=== PATIENT | male | born 1990 | race Caucasian/White ===

== ENCOUNTER 2019-09-10 00:01 | Inpatient (IN) | payer MEDICARE, MEDICAID ==
[~2019-09-10] VITALS: Ht 172.7 cm; Wt 69.9 kg
[2019-09-10] VITALS (9 sets, daily range): BP systolic 83–112; BP diastolic 44–68
[2019-09-10 01:17] LABS: URINE BILIRUBIN NEGATIVE (Negative); URINE BLOOD NEGATIVE (Negative); URINE CLARITY CLEAR; URINE COLOR YELLOW; URINE GLUCOSE-RANDOM NEGATIVE (Negative); URINE KETONES NEGATIVE (Negative); URINE LEUKOCYTES-REFLEX NEGATIVE (Negative); URINE NITRITE-REFLEX NEGATIVE (Negative); URINE PROTEIN NEGATIVE (Negative); URINE SPECIFIC GRAVITY 1.025 (1.005-1.030)
[2019-09-10 01:29] LABS: ABSOLUTE LYMPHOCYTES 2.1 thou/uL (0.8-5.3); ABSOLUTE MONOCYTES 0.9 thou/uL (0.0-1.2); ABSOLUTE NEUTROPHILS 12.9 thou/uL (1.6-8.1); BASOPHILS 0.1 %; EOSINOPHILS 0.3 %; HEMATOCRIT 45.1 % (42.0-52.0); HEMOGLOBIN 15.6 gm/dL (14.0-18.0); LYMPHOCYTES 13.1 %; MCH 29.3 pg (26.0-34.0); MCHC 34.7 g/dL (28.0-37.0); MCV 84.4 fL (80.0-100.0); MONOCYTES 5.7 %; MPV 7.9 fl. (7.2-11.1); NUCLEATED RBCS 0 /100WBC; PLATELET COUNT* 291 thou/uL (150-400); POLYS 80.8 %; RBC 5.34 mil/uL (4.50-6.00); RDW-CV 13.5 % (10.5-14.5)
[2019-09-10 01:35] LABS: AMP/METHAMP Negative (Negative); BARBITURATES Negative (Negative); BENZODIAZEPINES Negative (Negative); COCAINE Negative (Negative); METHADONE Negative (Negative); OPIATES Negative (Negative); PCP Negative (Negative); THC Negative (Negative)
[2019-09-10 01:35] LABS: CALCIUM 8.1 mg/dL (8.5-10.1); CREATININE 1.1 mg/dL (0.6-1.3); POTASSIUM 3.8 mmol/L (3.5-5.1)
[2019-09-10 01:45] LABS: ALBUMIN 3.6 g/dL (3.4-5.0); MAGNESIUM 2.2 mg/dL (1.8-2.4); TOTAL BILIRUBIN 0.4 mg/dL (<0.1-1.0); TOTAL PROTEIN 7.6 g/dL (6.4-8.2)
--- NOTE | 2019-09-10 07:03 | NUR ---
REPORT RECIEVED FROM ER. PT OREINTED TO ROOM, CALL LIGHT SHOWN, FALL AGREEMENT WENT OVER, PT STATED UNDERSTANDING. ADMISSION DOCUMENTED. IV PATENT, FLUIDS AND CARDIZEM INFUSING. CARDIZEM RUNNING AT 10ML/HR, PT TOLERATING WELL. CONSULT CALLED. WILL CONTINUE WITH PLAN OF CARE.
--- NOTE | 2019-09-10 07:10 | NUR ---
CHANGE OF SHIFT, BEDSIDE REPORT GIVEN PATIENT SEEN AT BESIDE, IN BED WATCHING TV ASSUMED PATIENT CARE
--- NOTE | 2019-09-10 11:09 | EKG ---
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[place] : 1990 Requested By: Zehra Guo Order Number: [id number] MD: Werner Johnston Measurements Intervals [place] Rate: 136 P: [place]: QRS: 52 QRSD: 90 T: 42 QT: 303 QTc: 456 Interpretive Statements Atrial fibrillation RSR' in V1 or V2, right VCD No previous ECG available for comparison Electronically Signed On 09-10-2019 11:07:47 CDT by Werner Johnston [email or web address] <ELECTRONICALLY SIGNED> By: Werner Johnston MD, [facility] 09/10/19 1107 0002 0002 Werner Johnston MD, [facility] /EPI
--- NOTE | 2019-09-10 11:12 | CON ---
[address] [address] CONSULTATION Name: YULI BUCKNER Room: [address] IN M.R.#: [id number] Admission: 09/10/19 Attend Phys: Brooks Matta MD Discharge: Date of : 86 Report #: [id number] THIS REPORT FOR: //name// cc: NURIS Lewis family physician/PCP NURIS - No family physician/PCP ~ THIS REPORT FOR: //name// CC: Brooks Matta MD [facility] physician/PCP HISTORY OF PRESENT ILLNESS: Thank you for allowing us to see the patient in cardiovascular assessment. He presented yesterday with a sensation of irregular heartbeat and was noted to have atrial fibrillation with rapid response. In the context of IV Cardizem, there has been moderation of his rate. He still notes the palpitations. He has described heart fluttering in the past, this has been transitory. He notes mild accompanying shortness of breath, but no chest pain. He denies rheumatic fever as a child. He has no chest pain accompanying this and there is no history of premature coronary disease in his family. He denies major risk factors for coronary artery disease. SOCIAL HISTORY: He is a nonsmoker. MEDICATIONS: At present include IV Cardizem. PHYSICAL EXAMINATION: GENERAL: Demonstrates not acutely distressed young adult male. VITAL SIGNS: Blood pressure is 120/70, the pulse rate is 108 and irregularly irregular, and respirations are 16 per minute. NECK: Jugular venous pressure is normal. CHEST: Clear. CARDIAC: Reveals normal first and second heart sounds with an irregularly irregular rhythm throughout. ABDOMEN: Soft. EXTREMITIES: Without edema with intact pulses. EKG reveals atrial fibrillation with a mildly tachycardic ventricular response. IMPRESSION: 1. [place] [address] CONSULTATION Name: DUDLEYYULI Room: [address] IN [facility]#: [id number] Admission: 09/10/19 Attend Phys: Brooks Matta MD Discharge: Date of : 86 Report #: [id number] 2. Family history of atrial fibrillation. RECOMMENDATIONS: 1. Continue IV Cardizem for rate modulation. 2. Attempt pharmaco reversion with flecainide 50 mg b.i.d. 3. Heparin bolus and infusion transitorily. 4. Echocardiogram in the a.m. Thank you for allowing us to see the patient in cardiovascular assessment. <ELECTRONICALLY SIGNED> By: Werner Johnston MD, FACC 09/10/19 1112 1032 [id number] Johnston MD, FACC /nt
[2019-09-11 04:00] VITALS: BP 93/54
[2019-09-11 04:52] LABS: ABSOLUTE BASOPHILS 0.1 thou/uL (0.0-0.2); ABSOLUTE LYMPHOCYTES 1.7 thou/uL (0.8-5.3); ABSOLUTE MONOCYTES 1.6 thou/uL (0.0-1.2); ABSOLUTE NEUTROPHILS 12.1 thou/uL (1.6-8.1); BASOPHILS 0.5 %; EOSINOPHILS 0.1 %; HEMATOCRIT 41.2 % (42.0-52.0); LYMPHOCYTES 11.1 %; MCHC 33.9 g/dL (28.0-37.0); MCV 85.7 fL (80.0-100.0); MONOCYTES 10.5 %; MPV 8.9 fl. (7.2-11.1); NUCLEATED RBCS 0 /100WBC; PLATELET COUNT* 294 thou/uL (150-400); POLYS 77.8 %; RBC 4.81 mil/uL (4.50-6.00); RDW-CV 13.7 % (10.5-14.5); WBC 15.6 thou/uL (4.0-11.0)
[2019-09-11 05:15] LABS: CALCIUM 8.1 mg/dL (8.5-10.1); CREATININE 1.1 mg/dL (0.6-1.3); POTASSIUM 3.6 mmol/L (3.5-5.1)
--- NOTE | 2019-09-11 07:28 | NUR ---
ASSUMED CARE OF PT AFTER REPORT AT 1930. PT A&OX4. VSS. PHYSICAL ASSESSMENT COMPLETED AND CHARTED. PT ON RA. PT TRACING AFIB/SR ON TELE. PT UPSTANBY. PT DENIES ANY PAIN OR DISCOMFORT. CALL LIGHT WITHIN REACH.
[2019-09-11 08:00] VITALS: BP 99/62
[2019-09-11 12:18] VITALS: BP 101/61
--- NOTE | 2019-09-11 13:35 | 2DMMODE ---
[place] [address] 2 D/M-MODE ECHOCARDIOGRAM Name: DUDLEYYULI Room: [address] IN Derek.#: [id number] Admission: 09/10/19 Attend Phys: Brooks Matta, Discharge: Date of : 86 Date of Service: 09/11/19 1332 Report #: [id number] THIS REPORT FOR: cc: FAM - No family physician/PCP FAM - No family physician/PCP Baldo Nicolas MD [facility] ~ APPROVED REPORT Study performed: 09/11/2019 09:56:06 EXAM: Comprehensive 2D, Doppler, and color-flow Echocardiogram Patient Location: In-Patient Room #: 210 BSA: 1.79 HR: 65 bpm BP: 99/62 mmHg Other Information Study Quality: Good Indications Atrial Fibrillation 2D Dimensions IVSd: 9.62 (7-11mm) LVOT Diam: 19.86 (18-24mm) LVDd: 44.02 mm PWd: 7.84 (7-11mm) Ascending Ao: 25.50 (22-36mm) LVDs: 21.87 (25-40mm) Aortic Root: 22.73 mm Volumes Left Atrial Volume (Systole) LA ESV Index: 11.60 mL/m2 Aortic Valve AoV Peak Dedrick.: 0.95 m/s AO Peak Gr.: 3.64 mmHg LVOT Max P.57 mmHg AO Mean Gr.: 2.22 mmHg LVOT Mean P.68 mmHg LVOT Max V: 0.94 m/s AO V2 VTI: 16.62 cm LVOT Mean V: 0.59 m/s HEYDI (VTI): 3.21 cm2 LVOT V1 VTI: 17.26 [place] [address] 2 D/M-MODE ECHOCARDIOGRAM Name: YULI BUCKNER Room: [address] IN .R.#: [id number] Admission: 09/10/19 Attend Phys: Brooks Matta, Discharge: Date of : 86 Date of Service: 09/11/19 1332 Report #: [id number] E/A Ratio: 1.97 MV Decel. Time: 165.76 ms MV E Max Dedrick.: 0.84 m/s MV PHT: 48.07 ms MVA (PHT): 4.58 cm2 TDI E/Lateral E': 5.60 E/Medial E': 7.00 Medial E' Dedrick.: 0.12 m/s Lateral E' Dedrick.: 0.15 m/s Pulmonary Valve PV Peak Dedrick.: 0.78 m/s PV Peak Gr.: 2.45 mmHg Tricuspid Valve RAP Estimate: 5.00 mmHg TR Peak Gr.: 18.72 mmHg RVSP: 23.72 mmHg PA Pressure: 23.72 mmHg Left Ventricle The left ventricle is normal size. There is normal LV segmental wall motion. There is normal left ventricular wall thickness. Left ventricular systolic function is normal. The left ventricular ejection fraction is within the normal range. LVEF is 55-60%. The left ventricular diastolic function is normal. Right Ventricle The right ventricle is normal size. The right ventricular systolic function is normal. Atria The left atrium size is normal. The right atrium size is normal. Aortic Valve The aortic valve is normal in structure. No aortic regurgitation is present. There is no aortic valvular stenosis. Mitral Valve The mitral valve is normal in structure. Trace mitral regurgitation. No evidence of mitral valve stenosis. Tricuspid Valve The tricuspid valve is normal in structure. trace [place]icus[place] [address] 2 D/M-MODE ECHOCARDIOGRAM Name: YULI BUCKNER Room: [address] IN [facility]#: [id number] Admission: 09/10/19 Attend Phys: Brooks Matta, Discharge: Date of : 86 Date of Service: 09/11/19 1332 Report #: [id number] Pulmonic Valve The pulmonary valve is normal in structure. There is no pulmonic valvular regurgitation. Great Vessels The aortic root is normal in size. IVC is normal in size and collapses >50% with inspiration. Pericardium There is no pericardial effusion. <Conclusion> Left ventricular systolic function is normal. The left ventricular ejection fraction is within the normal range. <ELECTRONICALLY SIGNED> By: Baldo Nicolas MD, FACC 09/11/19 1332 1332 133 Baldo Nicolas MD, FACC /INF
--- NOTE | 2019-09-11 13:51 | NUR ---
Pt is A&O. Resides at home with his parents. Independent. No DME. No hx of HH or SNF. Pt to have echo today. Per , anticipate dc to home tomorrow. Following.
--- NOTE | 2019-09-11 14:37 | EKG ---
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[employer]: : 1990 Requested By: Werner Johnston Order Number: [id number] Jose M MD: Baldo Nicolas Measurements Intervals [place] Rate: 69 P: 13 ID: 153 QRS: 29 QRSD: 93 T: 27 QT: 404 QTc: 433 Interpretive Statements Sinus rhythm Baseline wander in lead(s) V3 Compared to ECG 09/10/2019 00:02:30 Atrial fibrillation no longer present Electronically Signed On 09-11-2019 14:35:47 CDT by Baldo Nicolas [email or web address] <ELECTRONICALLY SIGNED> By: Blado Nicolas MD, [facility] 09/11/19 1435 1042 1042 Baldo Nicolas MD, [facility] /EPI
[2019-09-11 16:00] VITALS: BP 113/58
--- NOTE | 2019-09-11 16:22 | NUR ---
PATINET RESTING IN BED IN ROOM, UP AD SOTO IN ROOM. VSS. PATINET IN NO APPARENT SIGNS OF DISTRESS AT THIS TIME. HOURLY ROUNDING COMPLETED FOR PATIENT SAFETY.
[2019-09-11 20:00] VITALS: BP 99/64
[2019-09-12] VITALS: BP 107/72
--- NOTE | 2019-09-12 04:19 | NUR ---
ASSUMED PT CARE AT 1905. NURSING ASSESSMENT COMPLETED AT START OF SHIFT. 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 HOURLY ROUNDING COMPLETED. PT VOICED NO CONCERNS THIS SHIFT. CALL LIGHT WITHIN REACH.
[2019-09-12 04:40] VITALS: BP 98/68
[2019-09-12 07:43] VITALS: BP 105/72
--- NOTE | 2019-09-12 09:14 | NUR ---
Anticipate dc to home today, CM spoke with Pt, no needs voiced. Family to transport.
[2019-09-12] MEDS ORDERED: ASPIR 8181 M1 PO (11:00)
[2019-09-12] MEDS ORDERED: FLECAINIDE ACET50 M2 PO (11:00)
[2019-09-12] MEDS ORDERED: TYLENOL325 MG PO (11:01)
[2019-09-12 11:07] VITALS: BP 105/72
[2019-09-12 11:30] VITALS: BP 105/62
--- NOTE | 2019-09-12 13:31 | EKG ---
[place] [address] ELECTROCARDIOGRAM REPORT Name: YULI BUCKNER Room: [address] IN M.R.#: [id number] Admission: 09/10/19 Attend Phys: Brooks Matta, Discharge: 09/12/19 Date of : 86 Date of Service: 09/12/19 0802 Report #: [id number] THIS REPORT FOR: //name// [facility] Test Date: 2019-09-12 Test Time: 08:02:03 Pat Name: YULI BUCKNER Department: Room: [address] Gender: M Sort Line: : 1990 Requested By: Baldo Nicolas Order Number: [id number] Jose M MD: Gabe Hernandez Measurements Intervals [place] Rate: 78 P: 15 [place]: 154 QRS: 19 QRSD: 93 T: 20 QT: 383 QTc: 437 Interpretive Statements Sinus rhythm Compared to ECG 09/11/2019 10:42:13 No significant changes Electronically Signed On 09-12-2019 13:29:22 CDT by Gabe Hernandez [email or web address] <ELECTRONICALLY SIGNED> By: Gabe Hernandez MD, [facility] 09/12/19 1329 08 0802 Gabe Hernandez MD, [facility] /EPI
== END 2019-09-12 12:10 | disposition home or self-care (01) | DRG 309 ==
LOC: M.ERS 00:01 → M.TBA-ER 02:37 → M.2W 02:37
PROVIDERS: Emergency Medicine; ADMIT Internal Medicine
DX: I48.91 Unspecified atrial fibrillation (principal); R65.10 Systemic inflammatory response syndrome (SIRS) of non-infectious origin without acute organ dysfunction; F84.0 Autistic disorder; F98.8 Other specified behavioral and emotional disorders with onset usually occurring in childhood and adolescence; T78.40XA Allergy, unspecified, initial encounter; X58.XXXA Exposure to other specified factors, initial encounter